=== PATIENT | female | born 1965 | race Caucasian/White ===

== ENCOUNTER 2017-07-15 09:32 | Emergency (ER) | payer MEDICARE, MEDICAID ==
[2017-07-15] MEDS ORDERED: Ketamine 500 mg/10 ML MDV ONE (10:45)
[2017-07-15] MEDS ORDERED: Lidocaine 1% 50 ML MDV ONE (10:45)
[2017-07-15] MEDS ORDERED: Lidocaine 1% with EPINEPHrine 1:100,000 20 ML MDV ONE (10:48)
[2017-07-15] MEDS ORDERED: Ketamine 500 mg/10 ML MDV IM STA (10:55)
[2017-07-15] MEDS ORDERED: Lidocaine 1% with EPINEPHrine 1:100,000 20 ML MDV INJECT ONE (11:21)
--- NOTE | 2017-07-15 11:22 | EDM.PDOC ---
<Otilio Allen Yann - Last Filed: 07/15/17 12:41> ED HPI GENERAL MEDICAL PROBLEM - General Chief Complaint: Skin Complaint Stated Complaint: ABSCESS ON HIP Time Seen by Provider: 07/15/17 10:26 - Related Data Allergies Allergy/AdvReac Type Severity Reaction Status Date / Time amoxicillin Allergy Cannot Verified 07/15/17 09:49 Remember NSAIDS (Non-Steroidal Allergy Cannot Verified 07/15/17 09:49 Anti-Inflamma Remember oxymetazoline Allergy Cardiac Verified 07/15/17 09:49 [From Blanco-Synephrine Arrest (phenylephrine)] Penicillins Allergy Cannot Verified 07/15/17 09:49 Remember phenylephrine Allergy Cardiac Verified 07/15/17 09:49 [From Blanco-Synephrine Arrest (phenylephrine)] sulfamethoxazole Allergy Cannot Verified 07/15/17 09:49 [From Bactrim] Remember trimethoprim [From Bactrim] Allergy Cannot Verified 07/15/17 09:49 Remember Home Meds: Home Meds Calcium Carb/Magnesium Hydrox [PA-Acid DS] 1 tab PO QID 07/15/17 [History] Carbamide Peroxide [Debrox] 6 drop EARBOTH DAILY 07/15/17 [History] Doxycycline [Vibramycin] 100 mg PO BID #20 cap 07/15/17 [Rx] Meclizine [Antivert] 12.5 mg PO ASDIRECTED PRN 07/15/17 [History] Mesalamine [Apriso] 4 tab PO DAILY 07/15/17 [History] Mometasone Furoate 1 applic TOP DAILY PRN 07/15/17 [History] Nifedical. 30 mg PO DAILY 07/15/17 [History] Past Medical History HEENT History: Reports: Other (See Below) Other HEENT History: perforated tympanic membrane Gastrointestinal History: Reports: Other (See Below) Other Gastrointestinal History: Crohns disease Neurological History: Reports: Alzheimers Disease, Other (See Below) Other Neuro History: Down's syndrome - Past Surgical History HEENT Surgical History: Reports: Other (See Below) Other HEENT Surgeries/Procedures: dental repair under anesthesia in 2005, bilateral otic tube placement in 1979 and 1980 GI Surgical History: Reports: Appendectomy Social & Family History - Tobacco Use Smoking Status *Q: Never Smoker Second Hand Smoke Exposure: No - Caffeine Use Caffeine Use: Reports: None - Recreational Drug Use Recreational Drug Use: No ED SKIN PROCEDURES - I&D Site: L Hip Skin Prep: Chlorhexidine (Hibiciens) Local Anesthesia: Lidocaine: 1% Plain Local Anesthetic Volume: 2cc Area Incised With: 11 Blade Drainage: Other (no drainage) Course - Vital Signs Last Recorded V/S: Last Vital Signs Temp 36.6 C 07/15/17 12:54 Pulse 88 07/15/17 12:54 Resp 16 07/15/17 12:54 BP Pulse Ox 99 07/15/17 12:54 - Orders/Labs/Meds Meds: Medications Discontinued Medications Generic Name Dose Route Start Last Admin Trade Name Shahrzad PRN Reason Stop Dose Admin Ketamine HCl Confirm 07/15/17 10:45 07/15/17 11:22 Ketalar Administered 07/15/17 10:46 Not Given Dose 500 mg .ROUTE .STK-MED ONE Ketamine HCl 175 mg 07/15/17 10:55 07/15/17 11:02 Ketalar IM 07/15/17 10:56 175 mg ONETIME STA Administration Lidocaine HCl Confirm 07/15/17 10:45 07/15/17 11:22 Xylocaine 1% Administered 07/15/17 10:46 Not Given Dose 50 ml .ROUTE .STK-MED ONE Lidocaine/Epinephrine Confirm 07/15/17 10:48 07/15/17 11:23 Xylocaine 1% With Epinephrine 1:100,000 Administered 07/15/17 10:49 Not Given Dose 20 ml .ROUTE .STK-MED ONE Lidocaine/Epinephrine 20 ml 07/15/17 11:21 07/15/17 11:24 Xylocaine 1% With Epinephrine 1:100,000 INJECT 07/15/17 11:22 20 ml ONETIME ONE Administration - Re-Assessments/Exams Free Text/Narrative Re-Assessment/Exam: 07/15/17 11:19 I agree with hx and exam as documented by Dr Renate Allen. She monitered mental status, airway, ketamine administration while I prepped and drained possible abscess. Patient was given IM Ketamine after consent from [employer]. 2 cm mass L hip opened with #11 blade as documented. There was no drainage, pressure applied from margins, still no drainage. Covered with dry sterile dressing. Will plan to cover with an antibiotic, Follow up clinic in about 1 week. 07/15/17 12:41 Departure - Departure Disposition: Home, Self-Care 01 Clinical Impression: Abscess - Discharge Information Prescriptions: Doxycycline [Vibramycin] 100 mg PO BID #20 cap Instructions: Abscess Referrals: Gilma Pina MD [Primary Care Provider] - Forms: ED Department Discharge Additional Instructions: 1. Keep wound clean. OK to get wound wet when bathing. Then dry wound and apply non-adhering dressing. 2. Take antibiotic as prescribed. 3. Follow up with Dr. Pina next week for a wound check. 4. 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 The patient was seen by Dr. Pina today and sent here for further care. According to her caretakers, the wound is been present for at least a couple of days but they think it may have been present longer, not sure of timing. No discharge. No fever or associated symptoms. No known provoking factor. Patient does not provide history. ED ROS GENERAL - Review of Systems Review Of Systems: See Below Constitutional: Denies: Fever Skin: Reports: Lumps ED EXAM, SKIN/RASH Exam: See Below Exam Limited By: Altered Mental Status General Appearance: Alert, Anxious Eye Exam: Bilateral Eye: Normal Inspection Ears: Normal External Exam Nose: Normal Inspection Throat/Mouth: Normal Inspection, Normal Voice Head: Atraumatic, Normocephalic Neck: Normal Inspection, Supple Respiratory/Chest: No Respiratory Distress Extremities: Other (lateral LLE justdistal to hip: 2x2 cm area of induration and mild erythema. No fluctuance. Firm. No surrounding cellulitis. ) Departure - Departure Time of Disposition: 12:00
== END 2017-07-15 12:20 | disposition home or self-care (01) ==
LOC: JD.ED 09:32
DX: L02.416 Cutaneous abscess of left lower limb (principal); Z79.899 Other long term (current) drug therapy; Z88.2 Allergy status to sulfonamides; Z88.1 Allergy status to other antibiotic agents; Z88.0 Allergy status to penicillin; Z88.8 Allergy status to other drugs, medicaments and biological substances
CPT/HCPCS: 10060; 96372; 99152; 99153; 99283-25

== ENCOUNTER 2021-11-20 05:55 | Inpatient (IN) | payer MEDICARE, MEDICAID ==
[2021-11-20] MEDS ORDERED: LORazepam 1 MG Tab PO ONE (08:25)
[2021-11-20] MEDS ORDERED: Sodium Chloride 0.9% 10 ML Syringe FLUSH PRN ×2 (08:25→08:32)
[2021-11-20] MEDS ORDERED: Iopamidol 755 Mg/ML 100 ML Bottle IVPUSH ONE (08:32)
[2021-11-20] MEDS ORDERED: Sodium Chloride 0.9% 100 ML IV SCH (08:45)
[2021-11-20] MEDS ORDERED: Sodium Chloride 0.9% 500 ML IV SCH (10:30)
[2021-11-20] MEDS: Morphine 2 MG/ML SYRINGE IVPUSH PRN ×3 (14:50→23:25)
[2021-11-20] MEDS: LORazepam 2 MG/ML SDV IV PRN (21:27)
[2021-11-21] MEDS: Morphine 2 MG/ML SYRINGE IVPUSH PRN ×3 (02:50→08:06)
[2021-11-21] MEDS: LORazepam 2 MG/ML SDV IV PRN (04:23)
[2021-11-21] MEDS ORDERED: Morphine 2 MG/ML SYRINGE IVPUSH PRN (13:38)
== END 2021-11-21 21:55 | disposition expired | DRG 951 ==
LOC: JD.ED 05:55 → JD.MS 13:20
PROVIDERS: ADMIT Internal Medicine; ATTEND Internal Medicine
PROC: 30233N1 Transfusion of Nonautologous Red Blood Cells into Peripheral Vein, Percutaneous Approach (ICD-10-PCS; principal; 2021-11-20)
DX: Z51.5 Encounter for palliative care (principal); C18.2 Malignant neoplasm of ascending colon; K92.2 Gastrointestinal hemorrhage, unspecified; J91.0 Malignant pleural effusion; J90 Pleural effusion, not elsewhere classified; K50.90 Crohn's disease, unspecified, without complications; Z66 Do not resuscitate; I73.00 Raynaud's syndrome without gangrene; Z96.22 Myringotomy tube(s) status; F03.90 Unspecified dementia, unspecified severity, without behavioral disturbance, psychotic disturbance, mood disturbance, and anxiety; D63.0 Anemia in neoplastic disease; R09.02 Hypoxemia; Z79.1 Long term (current) use of non-steroidal anti-inflammatories (NSAID); D64.89 Other specified anemias; Z98.890 Other specified postprocedural states; Z90.89 Acquired absence of other organs; Z90.49 Acquired absence of other specified parts of digestive tract; Z95.828 Presence of other vascular implants and grafts; Q90.9 Down syndrome, unspecified; Z79.890 Hormone replacement therapy; Z79.899 Other long term (current) drug therapy; Z88.1 Allergy status to other antibiotic agents; Z88.8 Allergy status to other drugs, medicaments and biological substances; Z88.0 Allergy status to penicillin; Z88.2 Allergy status to sulfonamides; Z88.6 Allergy status to analgesic agent
CPT/HCPCS: 71045; 74178; 99285; 93005; 85027; 85007; 85379; 81003; 36415; 80053; 84484; 83880; 83540; 82607; 83605; 84466; 82746; 86900; 86901; 86850; 86922; 87040 ×2; 36430; Q9967; A9270; J3490; P9016 ×2; 93010; 99223; 99238; J2060; J2270